=== PATIENT | male | born 1955 | race Caucasian/White ===

== ENCOUNTER 2022-08-30 15:39 | Emergency (ER) | payer OTHER, SELFPAY ==
[2022-08-30 15:50] VITALS: BP 150/98; PULSE 70; RESP 18; O2SAT 96
--- NOTE | 2022-08-30 16:00 | DI.RAD_ITS ---
Exam(s) XR HAND RT COMPLETE EXAM: XR HAND RT COMPLETE CLINICAL HISTORY: hand and finger pain, trauma 4 weeks ago. TECHNIQUE: 2D digital imaging was performed. Three views. COMPARISON: No exams were available for comparison FINDINGS: BONES: No acute fracture is present. No bony destructive lesion is seen. JOINTS: No dislocation present. Degenerative changes of the interphalangeal joints SOFT TISSUE: No foreign body or abnormal gas collection. IMPRESSION: No acute abnormality. DATA REPOSITORY: RADIATION DOSE DELIVERED:
--- NOTE | 2022-08-30 16:22 | ED.GENADUL_ITS ---
Discharge Plan Disposition Patient Disposition: Home Condition: Stable Discharge Details Chief Complaint: Orthopedic Clinical Impression: Hand injury Primary Care Provider: Unknown,Unknown ED Provider: Victor M Hernandez Home Meds and New Rx's Prescriptions: No Action acetaminophen [Tylenol] 325 mg Tablet 650 mg PO PRN PRN Discharge Instructions Instructions: Hand Sprain (ED) Additional Instructions: Please continue with anti-inflammatory medications at home. Ice and elevate as needed. Please follow-up with hand specialist if you have persistent symptoms. Medical Decision Making 67-year-old male presents 4 weeks after traumatic injury to right hand, patient did not disclose nature of traumatic injury however endorses that his second third fourth and fifth digit of his right hand were hyperextended backwards for a brief period of time, since then patient has had some sharp pain in the palm of his hand as well as discomfort in mainly his third fourth and fifth digit, neurovascular exam of limb intact, flexion extension abduction and opposition intact, hemodynamically stable no external signs of trauma. Consider occult metacarpal fracture versus less likely dislocation or fracture of phalanges versus contusion more likely, no evidence of tendon rupture or neurovascular compromise. Will obtain screening x-ray, analgesia, likely will refer for hand specialist follow-up. 17: 12 patient resting comfortably no acute distress. No evidence of fracture or dislocation. Likely soft tissue injury. Instructed to continue with analgesia anti-inflammatories as well as ice and elevation. Patient be given referral to hand specialist at [facility] to be used as needed. HPI General Date/Time Provider Initiated Documentation: 08/30/22 15:53 . HPI Narrative: 67-year-old male endorses traumatic injury to right hand approximately 4 weeks ago, did not fully disclose the nature of traumatic injury however endorses that his second third fourth and fifth digits of his right hand were hyperextended backwards for short period of time. Since then patient has had some sharp pain in the palm of his hand as well as discomfort in mainly his third fourth and fifth digits. Related Data Home Medications Medication Instructions Recorded Confirmed acetaminophen 325 mg tablet 650 mg PO PRN PRN 08/30/22 08/30/22 (Tylenol) Allergies Allergy/AdvReac Type Severity Reaction Status Date / Time No Known Allergies Allergy Unverified 08/30/22 15:55 General Stated Complaint: Orthopedic DEWAYNE: 4 Review of Systems Narrative: Review of Systems Constitutional: negative Eyes: negative ENT: negative Cardiovascular: negative Respiratory: negative Gastrointestinal: negative : negative Musculoskeletal: Hand pain, finger pain Skin: negative Neurologic: negative Psych: negative PFSH All Active Problems (Updated 08/30/22 @ 17:14 by Victor M Hernandez MD) Hand injury (Acute) Social History Smoking/Tobacco Use Status: Never Smoking risk assessment performed?: Yes Substance use type: marijuana Details: uses THC gummies to sleep Do you feel safe at home: Yes Do you feel safe in your relationship?: Yes Exam Narrative Exam Narrative: Physical Examination General: alert, awake, cooperative, resting comfortably, no acute distress Skin: no lesions, rashes or trauma appreciated Neuro: AAOx3, normal speech, moving all extremities Extremities:Right hand: Flexion and extension of fingers intact, abduction and abduction intact able to oppose digits and thumb, warm well perfused extremity, radial pulse intact, no external signs of deformity, median radial and ulnar nerve distribution sensory exam intact Psych: Appropriate mood and affect Course Vital Signs Vital signs: Vital Signs Pulse 70 08/30/22 15:50 Respiratory Rate 18 08/30/22 15:50 Blood Pressure 150/98 H 08/30/22 15:50 Pulse Oximetry 96 08/30/22 15:50 Temperature Source Skin 08/30/22 15:50 Pulse 70 08/30/22 15:50 Respiratory Rate 18 08/30/22 15:50 Respiratory Effort 08/30/22 15:54 Blood Pressure 150/98 H 08/30/22 15:50 Blood Pressure Position Sitting 08/30/22 15:50 Pulse Oximetry 96 08/30/22 15:50 Oxygen Delivery Method Room Air 08/30/22 15:50 Oxygen Flow Rate 0 08/30/22 15:50 Pain Level 6 08/30/22 15:50
[2022-08-30] MEDS: Ketorolac 15 MG/ML VIAL IM (16:52)
--- NOTE | 2022-08-30 17:17 | NUR.NOTE ---
Nursing Note: PT info given to Care management for follow up within the next month at [facility] [place] hand specialist for hand injury. [place], ED
== END 2022-08-30 17:31 | disposition home or self-care (01) ==
PROVIDERS: Emergency Provider Emergency Medicine
DX: S69.91XA Unspecified injury of right wrist, hand and finger(s), initial encounter (principal); X50.9XXA Other and unspecified overexertion or strenuous movements or postures, initial encounter
CPT/HCPCS: 96372; 99284; 73130; J1885